=== PATIENT | male | born 1965 | race Caucasian/White ===

== ENCOUNTER 2025-03-31 12:27 | Day surgery (SDC) | payer MEDICAID ==
[~2025-03-31] VITALS: Ht 172.7 cm; Wt 85.3 kg
[2025-03-31] VITALS (10 sets, daily range): BP systolic 119–154; BP diastolic 81–98; PULSE 53–58; RESP 13–18; TEMP 98.5; O2SAT 92–97
[~2025-03-31 12:27] MED LIST: EMPA10TA PO; FERR324T PO; FOLI1TAB27 PO; LIDOcaine 2% Viscous 15ml cup MM ONE; METO-411 PO; ROSU10TA98 PO; SACU1TAB4 PO; THIA50TA10; ringers solution, lacted 1,000 ML IV SCH
--- NOTE | 2025-03-31 13:12 | ELECTROCARDIOGRAPH REPORT ---
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 Briana Viera Measurements Intervals [place] Rate: 58 P: 54 NC: 209 QRS: -1 QRSD: 98 T: 43 QT: 444 QTc: 437 Interpretive Statements Sinus bradycardia Borderline prolonged NC interval Minimal ST depression, lateral leads Electronically Signed On 04-04-2025 7:08:[address] Briana Viera Please click the below link to view image of tracing.
[2025-03-31] MEDS ORDERED: fentaNYL/PF 50MCG/1 ML 2ML syringe ONE (14:54)
[2025-03-31] MEDS ORDERED: MIDAZolam 1 MG/ML 5ML VIAL ONE (14:54)
[2025-03-31] MEDS: fentaNYL/PF 50MCG/1 ML 2ML syringe IV ONE (17:59)
[2025-03-31] MEDS: MIDAZolam 1 MG/ML 5ML VIAL IV ONE (17:59)
--- NOTE | 2025-04-05 07:04 | PATHOLOGY REPORT ---
[facility] [address] [place] [address] SURGICAL PATHOLOGY REPORT CaseNumber: [id number] Surgeon:Hai Simpson M.D. CLINICAL INFORMATION CLINICAL INFORMATION: Heartburn. Suspected esophageal reflux. DIAGNOSIS DIAGNOSIS: GASTRIC ANTRUM, BIOPSIES X 2 - NO SIGNIFICANT INFLAMMATION, EDEMA, OR VASCULAR CONGESTION - NO INTESTINAL METAPLASIA BY PAS STAINING - NO DYSPLASIA OR MALIGNANCY - NO H. PYLORI ORGANISMS ARE HIGHLIGHTED BY IMMUNOHISTOCHEMISTRY MICROSCOPIC DESCRIPTION MICROSCOPIC DESCRIPTION: Reviewed is a single H&E-stained slide showing serial sections and levels of two fragments of gastric antral-type mucosa. There is no significant inflammation, edema, or vascular congestion. There is no intestinal metaplasia by PAS staining. There are no dysplastic or neoplastic features. Also, no H. pylori organisms are highlighted by immunohistochemistry. GROSS DESCRIPTION GROSS DESCRIPTION: Received in a container of formalin labeled with the patient's name, number, and "antrum BX" are two pieces of blackburn tissue 0.1-0.6 x 0.1 x 0.1 cm. The specimen is entirely submitted as A1. The time at which the specimen was removed was 1506 The time at which the specimen was placed in formalin was 1507. Electronically signed by: Reilly Garces M.D. 04/05/2025 4:09:00 AM
== END 2025-03-31 16:35 | disposition home or self-care (01) ==
LOC: GI LAB 12:27
PROVIDERS: ATTEND Internal Medicine Gastroenterology
DX: R12 Heartburn (principal); K21.00 Gastro-esophageal reflux disease with esophagitis, without bleeding; K25.9 Gastric ulcer, unspecified as acute or chronic, without hemorrhage or perforation; K31.89 Other diseases of stomach and duodenum; I12.9 Hypertensive chronic kidney disease with stage 1 through stage 4 chronic kidney disease, or unspecified chronic kidney disease; E11.22 Type 2 diabetes mellitus with diabetic chronic kidney disease; N18.9 Chronic kidney disease, unspecified; E78.5 Hyperlipidemia, unspecified; G47.30 Sleep apnea, unspecified; I25.2 Old myocardial infarction; Z86.73 Personal history of transient ischemic attack (TIA), and cerebral infarction without residual deficits; Z79.899 Other long term (current) drug therapy; Z98.890 Other specified postprocedural states
CPT/HCPCS: 43239; 93005; J2250; J3010; J7120; Z7512; 99152; A4620; A6449